=== PATIENT | female | born 1975 | race Caucasian/White ===

== ENCOUNTER 2023-11-09 13:28 | Emergency (ER) | payer MEDICAID, OTHER ==
[~2023-11-09] VITALS: Ht 165.1 cm; Wt 75.5 kg
[2023-11-09] MEDS: ACETAMINOPHEN TAB 650MG DOSE (2X325MG) PO ONE (14:19)
[2023-11-09 15:20] VITALS: BP 139/92; TEMP 100.2; O2SAT 99
== END 2023-11-09 15:51 | disposition home or self-care (01) ==
LOC: M ED 13:28
DX: U07.1 COVID-19 (principal)